=== PATIENT | female | born 1980 | race Caucasian/White ===

== ENCOUNTER → 2019-11-02 | Outpatient (CLI) | payer OTHER ==
--- NOTE | 2019-11-02 16:59 | KCIC ---
EXAM: CHEST PA LATERAL INDICATION: Asthma with acute exacerbation.. TECHNIQUE: PA and lateral views COMPARISON: None FINDINGS: Mild right diaphragmatic elevation. The heart size is normal. The great vessels appear unremarkable. There is no hilar or mediastinal mass. The lungs are clear. There is no pleural effusion or pneumothorax. Bones suggest mild pectus excavatum morphology to the sternum. Otherwise bones are unremarkable. IMPRESSION: No active cardiopulmonary disease. Electronically signed by: Arianna Logan MD (11/02/2019 4:56 PM) [id number]
== END ==
LOC: KCIC 11:18
PROVIDERS: ATTEND Family Medicine
DX: J45.41 Moderate persistent asthma with (acute) exacerbation (principal)
CPT/HCPCS: 71046